=== PATIENT | male | born 1965 | race Caucasian/White ===

== ENCOUNTER 2018-04-04 20:27 | Emergency (ER) | END 2018-04-05 00:13 | disposition home or self-care (01) ==

== ENCOUNTER 2018-12-02 18:19 | Emergency (ER) | payer SELFPAY ==
[~2018-12-02] VITALS: Ht 162.6 cm; Wt 61.8 kg
[~2018-12-02 18:19] MED LIST: ALLO300T2 PO; ASPI-817 PO; BENA10TA4 PO; METF500T24 PO
[2018-12-02 18:44] VITALS: BP 129/93; PULSE 86; RESP 18; Ht 162.6 cm; Wt 61.8 kg
== END 2018-12-02 21:25 | disposition left against medical advice (07) ==
LOC: FTE 18:19
DX: Z53.21 Procedure and treatment not carried out due to patient leaving prior to being seen by health care provider (principal)

== ENCOUNTER 2019-01-16 14:38 | Emergency (ER) | payer SELFPAY ==
[~2019-01-16] VITALS: Ht 162.6 cm; Wt 58.6 kg
[2019-01-16 14:58] VITALS: BP 141/90; PULSE 75; RESP 18; Ht 162.6 cm; Wt 58.6 kg
[2019-01-16] MEDS ORDERED: SOD CHLORIDE 0.9% 590 ML IV ONE (16:30)
[2019-01-16] MEDS ORDERED: METF-849 PO (18:55)
[2019-01-16] MEDS ORDERED: INSULIN LISPRO 100 UNIT/ML VIAL SC ONE (19:00)
--- NOTE | 2019-01-17 09:40 | ERD ---
ER Documentation Chief Complaint Chief Complaint DYSURIA FOR 20 DAYS, NEED TO REFILL MEDS. HPI This is a 53-year-old male patient who presents to the emergency room with note from primary care physician stating blood glucose check in office was unreadable due to elevated blood sugar levels. Doctor sent patient to hospital to be ev aluated. Triage note states patient is having dysuria and needs medication refills however that was not the reason for the patient's visit. Patient states he knows he has diabetes but he has not been taking his medications. Denies nausea or vomiting, denies fatigue, denies increased thirst or hunger, denies frequent urination, no chest pain or shortness of breath. Patient is otherwise well-appearing, cooperative, NAD. History and physical exam and plan of care discussion performed via hourly sign language interpreter services ROS All systems reviewed and are negative except as per history of present illness. 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 01/16/19 Reported Medications Metformin Hcl* (Metformin Hcl*) 500 Mg Tablet, 500 MG PO WITH BREAKFAST, #30 TAB 04/04/18 Benazepril Hcl* (Benazepril Hcl*) 10 Mg Tablet, 10 MG PO DAILY, #30 TAB 04/04/18 Aspirin* (Aspirin* EC) 81 Mg Tablet.dr, 81 MG PO DAILY, TAB 04/04/18 Allopurinol* (Allopurinol*) 300 Mg Tablet, 600 MG PO DAILY, TAB 04/04/18 Allergies Allergies: Coded Allergies: Penicillins (Verified Allergy, Unknown, 04/04/18) PMhx/Soc History of Surgery: No Anesthesia Reaction: No Hx Neurological Disorder: No Hx Respiratory Disorders: No Hx Cardiac Disorders: Yes (htn, ) Hx Psychiatric Problems: No Hx Miscellaneous Medical Probl: No Hx Alcohol Use: Yes (socially) Hx Substance Use: No Hx Tobacco Use: No FmHx Family History: diabetes Physical Exam Vitals Vital Signs Date Temp Pulse Resp B/P (MAP) Pulse Ox O2 O2 Flow FiO2 Time Delivery Rate 01/16/19 98.8 75 18 141/90 98 14:58 (107) Physical Exam Const: No acute distress Head: Atraumatic Eyes: Normal Conjunctiva, PERRL, EOMI ENT: Normal External Ears, Nose and Mouth. Pharynx pink, moist, no lesions or exudate. Neck: Full range of motion. No meningismus. No lymphadenopathy. Resp: Clear to auscultation bilaterally Cardio: Regular rate and rhythm, no murmurs Abd: Soft, non tender, non distended. Normal bowel sounds, no organomegaly Skin: No petechiae or rashes, warm, dry, color consistent for ethnicity Back: No midline or flank tenderness Ext: No cyanosis, or edema Neur: Awake and alert, CNII-XII intact, steady gait, clear speech Psych: Normal Mood and Affect Result Diagram: 01/16/19 1646 01/16/19 1646 Results 24 hrs Laboratory Tests Test 01/16/19 16:19 01/16/19 16:46 01/16/19 16:55 01/16/19 18:48 Blood Gas Blood venous Specimen Source Arterial Blood 01/16/2019 5:15: Date Drawn 52 PM Arterial Blood VENOUS LINE Gas Puncture Site Dawson Test N/A Venous Blood pH 7.363 Venous Blood 46.6 mmHG pCO2 (Temp Corrected) Venous Blood pO2 29.9 mmHG (Temp Corrected) Venous Blood 25.9 mmol/L HCO3 Venous Blood 55.1 mmHG Oxygen Saturation Venous Blood 0.1 mmol/L Base Excess Venous Blood 14.2 g/dl Total Hemoglobin Venous Blood 54.7 % Oxyhemoglobin Venous Blood 0.2 % Methemoglobin Carboxyhemoglobi 0.6 % n Blood Gas 37.0 C Temperature Blood Gas ROOM AIR Modality FiO2 21.0 % Blood Gas Notified Whom Blood Gas 01/16/2019 5:20: Notified Time 17 PM White Blood 5.0 10^3/ul Count Red Blood Count 4.37 10^6/ul Hemoglobin 14.3 g/dl Hematocrit 41.4 % Mean Corpuscular 94.7 fl Volume Mean Corpuscular 32.7 pg Hemoglobin Mean Corpuscular 34.5 g/dl Hemoglobin Sloane nt Red Cell 11.9 % Distribution Width Platelet Count 178 10^3/UL Mean Platelet 10.3 fl Volume Immature 0.200 % Granulocytes % Neutrophils % 52.6 % Lymphocytes % 28.8 % Monocytes % 9.3 % Eosinophils % 7.9 % Basophils % 1.2 % Nucleated Red 0.0 /100WBC Blood Cells % Immature 0.010 10^3/ul Granulocytes # Neutrophils # 2.6 10^3/ul Lymphocytes # 1.4 10^3/ul Monocytes # 0.5 10^3/ul Eosinophils # 0.4 10^3/ul Basophils # 0.1 10^3/ul Nucleated Red 0.0 10^3/ul Blood Cells # Urine Color STRAW Urine Clarity CLEAR Urine pH 5.0 Urine Specific 1.032 [place] Urine Ketones 1+ mg/dL Urine Nitrite NEGATIVE mg/dL Urine Bilirubin NEGATIVE mg/dL Urine NEGATIVE mg/dL Urobilinogen Urine Leukocyte NEGATIVE Tomas/ul Esterase Urine Hemoglobin NEGATIVE mg/dL Urine Glucose 3+ mg/dL Urine Total NEGATIVE mg/dl Protein Sodium Level 133 mmol/L Potassium Level 4.3 mmol/L Chloride Level 93 mmol/L Carbon Dioxide 27 mmol/L Level Anion Gap 13 Blood Urea 13 mg/dl Nitrogen Creatinine 0.53 mg/dl Est Glomerular > 60 mL/min Filtrat Rate mL/min Glucose Level 486 mg/dl Calcium Level 9.2 mg/dl Phosphorus Level 4.5 mg/dl Magnesium Level 1.9 mg/dl Bedside Glucose 458 mg/dL 373 mg/dL Current Medications Medications Dose Sig/Alpesh Start Time Status Last (Trade) Ordered Route PRN Stop Time Admin Dose Reason Admin Sodium 590 ml @ ONCE ONCE 01/16/19 DC 01/16/19 Chloride 590 mls/hr IV 16:30 16:58 01/16/19 17:29 Insulin 10 unit ONCE ONCE 01/16/19 DC 01/16/19 Human SC 19:00 19:08 Lispro 01/16/19 19:01 (Humalog) Procedures/MDM PROCEDURES/MDM LAB INTERPRETATION: No leukocytosis, no anemia, no electrolyte imbalance, normal kidney function normal calcium, phosphorus, and magnesium, reduction in blood sugar from 486-373 with 1 L of normal saline, urine +1 ketones nitrite and leukocyte +3 glucose. Blood gas without acidosis, at 7.363, normal serum bicarb 25.9, slightly elevat ed Anion gap 13. -Medications: Saline, insulin Patient tolerated medication well with no adverse reactions. -Consultation: Dr. Harvey who has reviewed labs and agrees patient is appropriate for o utpatient managment MDM: Patient presents from primary childcare attendant's office with elevated blood sugar levels. Concern for DKA, patient was treated with IV hydration and insulin. Laboratory analysis negative for Hyponatremia, hyperkalemia, dehydration, infection, UTI. Patient denies pain, denies nausea, no shortness of breath. Low suspicion for DKA, pancreatitis, or cardiac sequelae. Patient is well appearing and appears to be reliable for self-care and follow-up. Patient verbalizes understanding of danger of hyperglycemia and need to resume metformin today and follow-up with primary caregiver tomorrow. Patient was instructed on increasing hydration, avoiding intake of excess carbohydrates, signs and symptoms of worsening of condition, and when to return to emergency room. DISPOSITION and PLAN: RX: Metformin The patient has been discharge home to follow-up with community physician. Departure Diagnosis: Primary Impression: Hyperglycemia Condition: Stable Patient Instructions: Hyperglycemia (High Blood Sugar) Referrals: [facility] YOU HAVE RECEIVED A MEDICAL SCREENING EXAM AND THE RESULTS INDICATE THAT YOU DO NOT HAVE A CONDITION THAT REQUIRES URGENT TREATMENT IN THE EMERGENCY DEPARTMENT. FURTHER EVALUATION AND TREATMENT OF YOUR CONDITION CAN WAIT UNTIL YOU ARE SEEN IN YOUR DOCTORS OFFICE WITHIN THE NEXT 1-2 DAYS. IT IS YOUR RESPONSIBILITY TO MAKE AN APPOINTMENT FOR FOLOW-UP CARE. IF YOU HAVE A PRIMARY DOCTOR --you should call your primary doctor and schedule an appointment IF YOU DO NOT HAVE A PRIMARY DOCTOR YOU CAN CALL OUR PHYSICIAN REFERRAL HOTLINE AT IF YOU CAN NOT AFFORD TO SEE A PHYSICIAN YOU CAN CHOSE FROM THE FOLLOWING [facility] [id number]. [facility] [address] [facility] [facility] [address] [facility] [facility] [address] [facility]. [facility] [address] [facility]. [facility]. [address] Additional Instructions: Thank you very much for allowing us to participate in your care. Your health and safety is our top priority at [facility]. Call your primary care doctor TOMORROW for an appointment during the next 2-4 days and bring all the information and medications prescribed. Have prescriptions filled and follow precisely the directions on the label. If the symptoms get worse and your provider is unavailable, return to the Emerg ency Department immediately. START TAKING METFORMIN TONIGHT. FOLLOW-UP WITH YOUR PRIMARY CARE DOCTOR IN THE NEXT 1 TO 2 DAYS. RETURN TO THE EMERGENCY ROOM WITH WORSENING OF SYMPTOMS INCLUDING VOMITING, FEVER, SEVERE ABDOMINAL PAIN. JOSS COLLADO NP Jan 17, 2019 09:40
== END 2019-01-16 19:22 | disposition home or self-care (01) ==
LOC: FTE 14:38
DX: R73.9 Hyperglycemia, unspecified (principal); I10 Essential (primary) hypertension; Z79.82 Long term (current) use of aspirin; Z79.84 Long term (current) use of oral hypoglycemic drugs
CPT/HCPCS: 36415; 80048; 81003; 82803; 82962; 83735; 84100; 85025; 96360; 96372; 99284; J1815; J7030